=== PATIENT | female | born 1935 | race African-American/Black ===

== ENCOUNTER 2016-11-24 15:48 | Inpatient (IN) | payer MEDICARE, MEDICAID ==
[~2016-11-24] VITALS: Ht 172.7 cm; Wt 81.2 kg
[~2016-11-24 15:48] MED LIST: AMLO5TAB88 PO
[2016-11-24] MEDS ORDERED: FUROSEMIDE 40MG/4ML VIAL IV STA (17:33)
[2016-11-24] MEDS ORDERED: ASPIRIN 81MG TABLET PO STA (17:33)
[2016-11-24 18:00] LABS: BASOPHILS % 0.7 % (0.0-2.0); EOSINOPHILS % 2.8 % (0.0-5.0); HEMATOCRIT. 37.1 % (36.0-48.0); LYMPHOCYTES % 16.7 % (20.0-50.0); MEAN CORPUSCULAR HEMOGLOBIN 27.3 pg (28.0-32.0); MEAN CORPUSCULAR VOLUME 84.4 fL (81.0-99.0); MEAN PLATELET VOLUME 9.5 fl (7.4-10.4); MONOCYTES % 5.8 % (2.0-8.0); PLATELET 206 x1000/uL (130-400); RED BLOOD CELL COUNT 4.39 mill/uL (4.2-5.4); RED CELL DISTRIBUTION WIDTH 14.1 % (11.6-14.6)
[2016-11-24 18:08] LABS: PARTIAL THROMBOPLASTIN TIME 23.3 sec (23.4-31.0); PROTHROMBIN TIME 10.7 sec (9.4-11.6)
[2016-11-24 18:17] LABS: CHLORIDE 108 mEq/L (98-107)
[2016-11-24 18:26] LABS: CARBON DIOXIDE 30 mEq/L (21-32); CREATINE KINASE 90 IU/L (26-192)
[2016-11-24 18:27] LABS: TROPONIN I < 0.02 ng/mL (0.00-0.04)
[2016-11-24] MEDS ORDERED: CLONIDINE 0.1MG TABLET PO PRN (22:30)
[2016-11-24] MEDS ORDERED: DOCUSATE SODIUM 100MG CAPSULE PO PRN (22:30)
[2016-11-24] MEDS ORDERED: ACETAMINOPHEN 325MG TABLET PO PRN (22:30)
[2016-11-24] MEDS ORDERED: ONDANSETRON HCL 4MG/2ML VIAL IV PRN (22:30)
[2016-11-24] MEDS: ENOXAPARIN 40MG/0.4ML SYR SUBCUT SCH (23:20)
[2016-11-25 02:10] VITALS: BP 132/53
[2016-11-25 04:00] VITALS: BP 128/62
[2016-11-25 07:12] LABS: CARBON DIOXIDE 30 mEq/L (21-32); CHLORIDE 108 mEq/L (98-107); HDL CHOLESTEROL 54 mg/dL (40-59); LDL CHOLESTEROL 46 mg/dL (5-100)
[2016-11-25 07:15] LABS: TROPONIN I < 0.02 ng/mL (0.00-0.04)
[2016-11-25 07:45] LABS: BASOPHILS % 0.5 % (0.0-2.0); HEMATOCRIT. 35.4 % (36.0-48.0); HEMOGLOBIN. 11.5 g/dL (12.0-16.0); MEAN CORPUSCULAR HEMOGLOBIN 27.2 pg (28.0-32.0); MEAN PLATELET VOLUME 9.9 fl (7.4-10.4); MONOCYTES % 8.8 % (2.0-8.0); NEUTROPHILS % 68.7 % (40.0-76.0); PLATELET 194 x1000/uL (130-400); RED BLOOD CELL COUNT 4.22 mill/uL (4.2-5.4); RED CELL DISTRIBUTION WIDTH 13.6 % (11.6-14.6)
[2016-11-25 08:00] VITALS: BP 153/48
[2016-11-25] MEDS: FUROSEMIDE 40MG/4ML VIAL IVP SCH (09:20)
[2016-11-25] MEDS: MEMANTINE HCL 10MG TABLET PO SCH ×2 (09:20→20:43)
[2016-11-25] MEDS: POTASSIUM CHLORIDE 10MEQ TABLET SR PO SCH (09:20)
[2016-11-25] MEDS: GALANTAMINE HBR 8MG ER CAPSULE 24HR PO SCH (09:20)
[2016-11-25 09:36] LABS: CLARITY URINE CLEAR (CLEAR); COLOR URINE YELLOW (YELLOW); GLUCOSE URINE NEGATIVE (NEGATIVE); KETONES URINE NEGATIVE (NEGATIVE); LEUKOCYTE ESTERASE URINE NEGATIVE (NEGATIVE); NITRITE URINE POSITIVE (NEGATIVE); OCCULT BLOOD URINE NEGATIVE (NEGATIVE); PROTEIN URINE TRACE (NEGATIVE); SPECIFIC GRAVITY URINE 1.016 (1.005-1.030); UROBILINOGEN URINE 0.2 E.U./dL (0.2-1.0)
[2016-11-25 12:00] VITALS: BP 157/40
[2016-11-25] MEDS: LOSARTAN POTASSIUM 25 MG TABLET PO SCH (13:03)
[2016-11-25 16:00] VITALS: BP 141/46
[2016-11-25 16:48] LABS: CREATINE KINASE MB FRACTION 1.6 ng/mL (0.5-3.6); TROPONIN I < 0.02 ng/mL (0.00-0.04)
[2016-11-25 20:00] VITALS: BP 177/71
[2016-11-25] MEDS: CARVEDILOL 3.125 MG TABLET PO SCH (20:43)
[2016-11-25] MEDS: ATORVASTATIN CALCIUM 20MG TABLET PO SCH (20:43)
[2016-11-26] VITALS: BP 134/72
[2016-11-26] MEDS: ENOXAPARIN 40MG/0.4ML SYR SUBCUT SCH ×2 (00:22→23:21)
[2016-11-26 04:00] VITALS: BP 159/54
[2016-11-26 07:17] LABS: BASOPHILS % 0.5 % (0.0-2.0); EOSINOPHILS % 5.1 % (0.0-5.0); HEMOGLOBIN. 12.6 g/dL (12.0-16.0); MEAN CORPUSCULAR HEMOGLOBIN 27.4 pg (28.0-32.0); MEAN CORPUSCULAR VOLUME 84.5 fL (81.0-99.0); MONOCYTES % 7.4 % (2.0-8.0); PLATELET 210 x1000/uL (130-400); RED BLOOD CELL COUNT 4.61 mill/uL (4.2-5.4); RED CELL DISTRIBUTION WIDTH 13.7 % (11.6-14.6)
[2016-11-26 07:41] LABS: CHLORIDE 104 mEq/L (98-107)
[2016-11-26 08:00] VITALS: BP 165/39
[2016-11-26] MEDS: GALANTAMINE HBR 8MG ER CAPSULE 24HR PO SCH (08:17)
[2016-11-26] MEDS: MEMANTINE HCL 10MG TABLET PO SCH ×2 (08:17→20:57)
[2016-11-26] MEDS: LOSARTAN POTASSIUM 25 MG TABLET PO SCH ×2 (08:17→20:58)
[2016-11-26] MEDS: FUROSEMIDE 40MG/4ML VIAL IVP SCH (08:17)
[2016-11-26] MEDS: POTASSIUM CHLORIDE 10MEQ TABLET SR PO SCH (08:18)
[2016-11-26 08:37] LABS: CARBON DIOXIDE 27 mEq/L (21-32)
[2016-11-26] MEDS: CARVEDILOL 3.125 MG TABLET PO SCH ×2 (09:00→20:59)
[2016-11-26] MEDS: LEVOFLOXACIN 250MG TABLET PO SCH (10:03)
[2016-11-26 12:00] VITALS: BP 141/42
[2016-11-26] MEDS: ASPIRIN 81MG TABLET PO SCH (13:30)
[2016-11-26 16:00] VITALS: BP 143/41
[2016-11-26] MEDS ORDERED: FUROSEMIDE 40MG/4ML VIAL IVP SCH (17:00)
[2016-11-26 20:00] VITALS: BP 169/45
[2016-11-26] MEDS: ATORVASTATIN CALCIUM 20MG TABLET PO SCH (20:57)
[2016-11-27] VITALS (8 sets, daily range): BP systolic 90–180; BP diastolic 36–80
[2016-11-27] MEDS: IPRATROPIUM/ALBUTEROL 0.5-3(2.5)MG/3ML NEB HHN SCH ×2 (01:25→05:40)
[2016-11-27 06:53] LABS: BASOPHILS % 0.6 % (0.0-2.0); EOSINOPHILS % 3.5 % (0.0-5.0); HEMATOCRIT. 40.7 % (36.0-48.0); HEMOGLOBIN. 12.9 g/dL (12.0-16.0); LYMPHOCYTES % 16.9 % (20.0-50.0); MEAN CORPUSCULAR HEMOGLOBIN 27.1 pg (28.0-32.0); MEAN CORPUSCULAR VOLUME 85.3 fL (81.0-99.0); MEAN PLATELET VOLUME 9.7 fl (7.4-10.4); MONOCYTES % 5.9 % (2.0-8.0); NEUTROPHILS % 73.1 % (40.0-76.0); PLATELET 199 x1000/uL (130-400); RED BLOOD CELL COUNT 4.77 mill/uL (4.2-5.4); RED CELL DISTRIBUTION WIDTH 13.8 % (11.6-14.6)
[2016-11-27] MEDS ORDERED: DEXTROSE 50% WATER 50ML SYRINGE IV PRN (08:15)
[2016-11-27] MEDS: LOSARTAN POTASSIUM 25 MG TABLET PO SCH ×2 (09:00→20:32)
[2016-11-27] MEDS: CARVEDILOL 3.125 MG TABLET PO SCH ×2 (09:00→20:38)
[2016-11-27] MEDS ORDERED: INSULIN LISPRO 100 UNITS/ML SUBCUT NR (09:15)
[2016-11-27] MEDS: MEMANTINE HCL 10MG TABLET PO SCH ×2 (09:27→20:39)
[2016-11-27] MEDS: ASPIRIN 81MG TABLET PO SCH (09:27)
[2016-11-27] MEDS: GALANTAMINE HBR 8MG ER CAPSULE 24HR PO SCH (09:27)
[2016-11-27] MEDS: LEVOFLOXACIN 250MG TABLET PO SCH (13:04)
[2016-11-27] MEDS: INSULIN LISPRO 100 UNITS/ML SUBCUT SCH ×3 (13:09→20:43)
[2016-11-27] MEDS: BLOOD SUGAR DIAGNOSTIC STRIP TEST SCH ×3 (13:09→20:39)
[2016-11-27] MEDS: ATORVASTATIN CALCIUM 20MG TABLET PO SCH (20:29)
[2016-11-28] VITALS: BP_SYST 190; BP_SYST 198; BP_DIAS 39; BP_DIAS 61
[2016-11-28] MEDS: ENOXAPARIN 40MG/0.4ML SYR SUBCUT SCH (00:07)
[2016-11-28 00:30] VITALS: BP 99/48
[2016-11-28] MEDS: IPRATROPIUM/ALBUTEROL 0.5-3(2.5)MG/3ML NEB HHN SCH ×3 (01:06→08:16)
[2016-11-28 04:00] VITALS: BP 116/47
[2016-11-28] MEDS: BLOOD SUGAR DIAGNOSTIC STRIP TEST SCH (07:19)
[2016-11-28] MEDS: INSULIN LISPRO 100 UNITS/ML SUBCUT SCH (07:42)
[2016-11-28 08:00] VITALS: BP 111/57
[2016-11-28] MEDS: LOSARTAN POTASSIUM 25 MG TABLET PO SCH (09:00)
[2016-11-28] MEDS: CARVEDILOL 3.125 MG TABLET PO SCH (09:00)
[2016-11-28] MEDS: ASPIRIN 81MG TABLET PO SCH (09:51)
[2016-11-28] MEDS: GALANTAMINE HBR 8MG ER CAPSULE 24HR PO SCH (09:51)
[2016-11-28] MEDS: MEMANTINE HCL 10MG TABLET PO SCH (09:51)
[2016-11-28] MEDS: LEVOFLOXACIN 250MG TABLET PO SCH (10:04)
[2016-11-28 11:27] VITALS: BP_SYST 102; BP_SYST 111; BP_DIAS 52; BP_DIAS 57
[2016-11-28 12:00] VITALS: BP 102/52
== END 2016-11-28 11:54 | DRG 292 ==
LOC: ER 17:36 → 7WST 19:38 → EDBEDREQ 19:53 → ENRESERV 11-25 00:15
PROVIDERS: ADMIT Internal Medicine Geriatric Medicine; ATTEND Internal Medicine Geriatric Medicine
DX: I11.0 Hypertensive heart disease with heart failure (principal); N39.0 Urinary tract infection, site not specified; E11.51 Type 2 diabetes mellitus with diabetic peripheral angiopathy without gangrene; E86.0 Dehydration; E44.1 Mild protein-calorie malnutrition; I50.43 Acute on chronic combined systolic (congestive) and diastolic (congestive) heart failure; E11.59 Type 2 diabetes mellitus with other circulatory complications; D63.8 Anemia in other chronic diseases classified elsewhere; B96.89 Other specified bacterial agents as the cause of diseases classified elsewhere; E78.00 Pure hypercholesterolemia, unspecified; E78.5 Hyperlipidemia, unspecified; G30.9 Alzheimer's disease, unspecified; F02.80 Dementia in other diseases classified elsewhere, unspecified severity, without behavioral disturbance, psychotic disturbance, mood disturbance, and anxiety; I25.10 Atherosclerotic heart disease of native coronary artery without angina pectoris; I87.2 Venous insufficiency (chronic) (peripheral); Z79.899 Other long term (current) drug therapy; Z68.27 Body mass index [BMI] 27.0-27.9, adult
CPT/HCPCS: 36415; 71010; 80048; 80053; 80061; 81001; 82550; 82553; 82962; 83036; 83605; 83690; 83735; 83880; 84443; 84484; 85025; 85610; 85730; 87040; 87077; 87086; 87186; 93005; 93306; 93970; 94640; 94664; 96374; 97116; 97162; 99285; C1893; J1650; J1815; J1940; J7620

== ENCOUNTER 2016-12-05 21:36 | Inpatient (IN) | payer MEDICARE, MEDICAID ==
[~2016-12-05] VITALS: Ht 165.1 cm; Wt 93.9 kg
[2016-12-05] MEDS ORDERED: IPRATROPIUM BROMIDE (0.02%) 0.5MG/2.5ML NEB HHN STA (22:05)
[2016-12-05] MEDS ORDERED: ALBUTEROL (0.083%) 2.5MG/3ML NEB HHN STA (22:05)
[2016-12-05] MEDS ORDERED: METHYLPREDNISOLONE SOD SUCC 125 MG/2 ML VIAL IV STA (22:05)
[2016-12-05] MEDS ORDERED: AZITHROMYCIN 500 MG in DEXT 5% WATER 250 ML IV ONE (22:15)
[2016-12-05 22:55] LABS: BG BASE EXCESS -0.8 mmol/L (-2.0-2.0); BG CARBOXYHEMOGLOBIN 0.8 % (0.5-1.5); BG DEOXYHEMOGLOBIN 0.7 % (0.0-5.0); BG FRACTION INSPIRED OXYGEN 100; BG HCO3 ACT 30.6 mmol/L (22.0-26.0); BG METHEMOGLOBIN 0.3 % (0.0-1.5); BG OXYGEN SATURATION 99.3 % (92.0-98.5); BG OXYHEMOGLOBIN 98.2 % (94.0-97.0); BG PCO2 91.3 mmHg (35.0-45.0); BG PH 7.143 (7.350-7.450); BG SAMPLE SITE RIGHT RADIAL; BG TOTAL HEMOGLOBIN 12.9 g/dL (12.0-18.0); BG VENT MODE MASK - NRB
[2016-12-05 23:30] LABS: HEMATOCRIT. 37.2 % (36.0-48.0); HEMOGLOBIN. 11.7 g/dL (12.0-16.0); MEAN CORPUSCULAR VOLUME 85.8 fL (81.0-99.0); MEAN PLATELET VOLUME 9.6 fl (7.4-10.4); PLATELET 235 x1000/uL (130-400); RED BLOOD CELL COUNT 4.34 mill/uL (4.2-5.4); RED CELL DISTRIBUTION WIDTH 14.2 % (11.6-14.6)
[2016-12-05 23:47] LABS: CARBON DIOXIDE 31 mEq/L (21-32); CHLORIDE 101 mEq/L (98-107)
[2016-12-06] VITALS (54 sets, daily range): BP systolic 78–195; BP diastolic 22–130
[2016-12-06 00:52] LABS: BG BILEVEL POS AIRWAY PRESSURE 15/5; BG CARBOXYHEMOGLOBIN 0.6 % (0.5-1.5); BG DEOXYHEMOGLOBIN 0.9 % (0.0-5.0); BG FRACTION INSPIRED OXYGEN 50; BG METHEMOGLOBIN 0.3 % (0.0-1.5); BG OXYGEN SATURATION 99.1 % (92.0-98.5); BG OXYHEMOGLOBIN 98.2 % (94.0-97.0); BG PCO2 69.3 mmHg (35.0-45.0); BG PH 7.239 (7.350-7.450); BG PO2 189.7 mmHg (75.0-100.0); BG SAMPLE SITE RIGHT RADIAL; BG TOTAL HEMOGLOBIN 12.5 g/dL (12.0-18.0); BG VENT MODE MASK - BIPAP; BG VENT RATE 16 set
[2016-12-06] MEDS ORDERED: IPRATROPIUM/ALBUTEROL 0.5-3(2.5)MG/3ML NEB HHN PRN (03:45)
[2016-12-06] MEDS ORDERED: DEXTROSE 50% WATER 50ML SYRINGE IV PRN (03:45)
[2016-12-06] MEDS ORDERED: ACETAMINOPHEN 325MG TABLET PO PRN ×2 (03:45→11:00)
[2016-12-06] MEDS: DEXT 5%/0.45% NACL 1000ML 1,000 ML IV SCH (05:05)
[2016-12-06] MEDS: CLONIDINE 0.1MG TABLET PO PRN (05:05)
[2016-12-06] MEDS: MONTELUKAST SODIUM 10MG TABLET PO SCH ×2 (05:15→17:33)
[2016-12-06 06:16] LABS: PHOSPHORUS 3.6 mg/dL (2.5-4.9)
[2016-12-06] MEDS: BLOOD SUGAR DIAGNOSTIC STRIP TEST SCH ×4 (06:52→21:13)
[2016-12-06] MEDS: INSULIN LISPRO 100 UNITS/ML SUBCUT SCH ×4 (06:58→21:50)
[2016-12-06 07:07] LABS: PLATELET ESTIMATE NORMAL
[2016-12-06 07:36] LABS: HEMATOCRIT. 36.2 % (36.0-48.0); HEMOGLOBIN. 11.5 g/dL (12.0-16.0); MEAN CORPUSCULAR VOLUME 85.1 fL (81.0-99.0); PLATELET 206 x1000/uL (130-400); RED BLOOD CELL COUNT 4.25 mill/uL (4.2-5.4); RED CELL DISTRIBUTION WIDTH 13.8 % (11.6-14.6)
[2016-12-06 08:03] LABS: BG BASE EXCESS 0.5 mmol/L (-2.0-2.0); BG CARBOXYHEMOGLOBIN 0.4 % (0.5-1.5); BG DEOXYHEMOGLOBIN 0.8 % (0.0-5.0); BG METHEMOGLOBIN 0.2 % (0.0-1.5); BG OXYGEN SATURATION 99.2 % (92.0-98.5); BG OXYHEMOGLOBIN 98.6 % (94.0-97.0); BG PO2 202.9 mmHg (75.0-100.0); BG SAMPLE SITE RIGHT RADIAL; BG TOTAL HEMOGLOBIN 12.3 g/dL (12.0-18.0); BG VENT MODE MASK - SIMPLE
[2016-12-06] MEDS: IPRATROPIUM/ALBUTEROL 0.5-3(2.5)MG/3ML NEB HHN SCH ×4 (08:14→20:42)
[2016-12-06] MEDS: CLOPIDOGREL 75MG TABLET PO SCH (09:00)
[2016-12-06 09:25] LABS: PLATELET ESTIMATE NORMAL
[2016-12-06] MEDS ORDERED: DEXT 5%/0.45% NACL 1000ML 1,000 ML IV SCH (09:30)
[2016-12-06] MEDS: LOSARTAN POTASSIUM 25 MG TABLET PO SCH (09:50)
[2016-12-06] MEDS ORDERED: METHYLPREDNISOLONE SOD SUCC 40 MG/ML VIAL IV NR (10:00)
[2016-12-06 10:35] LABS: CHLORIDE 102 mEq/L (98-107)
[2016-12-06 10:41] LABS: CARBON DIOXIDE 25 mEq/L (21-32)
[2016-12-06] MEDS ORDERED: LIDOCAINE HCL 1% 20ML VIAL (Pyxis) INJ ONE (10:43)
[2016-12-06 10:49] LABS: BG BASE EXCESS 1.7 mmol/L (-2.0-2.0); BG BILEVEL POS AIRWAY PRESSURE ST=15/5; BG CARBOXYHEMOGLOBIN 0.5 % (0.5-1.5); BG DEOXYHEMOGLOBIN 1.3 % (0.0-5.0); BG FRACTION INSPIRED OXYGEN 50; BG HCO3 ACT 29.9 mmol/L (22.0-26.0); BG METHEMOGLOBIN 0.2 % (0.0-1.5); BG OXYGEN SATURATION 98.7 % (92.0-98.5); BG PCO2 65.6 mmHg (35.0-45.0); BG PH 7.276 (7.350-7.450); BG PO2 150.3 mmHg (75.0-100.0); BG PRESSURE SUPPORT 10; BG SAMPLE SITE RIGHT BRACHIAL; BG TOTAL HEMOGLOBIN 11.6 g/dL (12.0-18.0); BG VENT MODE MASK - BIPAP; BG VENT RATE 16 set
[2016-12-06] MEDS ORDERED: GLIMEPIRIDE 1MG TABLET PO NR (11:00)
[2016-12-06] MEDS: PANTOPRAZOLE SODIUM 40 MG/VIAL IV SCH (12:00)
[2016-12-06] MEDS: AMLODIPINE 2.5MG TABLET PO SCH ×2 (12:02→21:13)
[2016-12-06] MEDS: LEVOFLOXACIN 750MG PREMIX 150 ML IV SCH (12:07)
[2016-12-06] MEDS: BUDESONIDE 0.5MG/2ML NEB HHN SCH ×2 (12:13→22:37)
[2016-12-06] MEDS ORDERED: ERGOCALCIFEROL 50000UNITS CAPSULE PO NR (13:00)
[2016-12-06] MEDS ORDERED: CALCIUM CARBONATE 1250MG TABLET (500MG ELEMENTAL CALCIUM) PO NR (13:00)
[2016-12-06 13:08] LABS: CLARITY URINE CLEAR (CLEAR); COLOR URINE YELLOW (YELLOW); GLUCOSE URINE TRACE (NEGATIVE); KETONES URINE NEGATIVE (NEGATIVE); LEUKOCYTE ESTERASE URINE NEGATIVE (NEGATIVE); NITRITE URINE NEGATIVE (NEGATIVE); OCCULT BLOOD URINE NEGATIVE (NEGATIVE); PROTEIN URINE 1+ (NEGATIVE); SPECIFIC GRAVITY URINE 1.015 (1.005-1.030); UROBILINOGEN URINE 0.2 E.U./dL (0.2-1.0)
[2016-12-06] MEDS: METHYLPREDNISOLONE SOD SUCC 125 MG/2 ML VIAL IV SCH ×2 (13:58→21:12)
[2016-12-06 17:24] LABS: BG BASE EXCESS -0.3 mmol/L (-2.0-2.0); BG BILEVEL POS AIRWAY PRESSURE 15/5; BG CARBOXYHEMOGLOBIN 0.3 % (0.5-1.5); BG DEOXYHEMOGLOBIN 1.1 % (0.0-5.0); BG HCO3 ACT 26.7 mmol/L (22.0-26.0); BG METHEMOGLOBIN 0.3 % (0.0-1.5); BG OXYGEN SATURATION 98.9 % (92.0-98.5); BG OXYHEMOGLOBIN 98.3 % (94.0-97.0); BG PCO2 55.2 mmHg (35.0-45.0); BG PH 7.303 (7.350-7.450); BG PO2 173.9 mmHg (75.0-100.0); BG SAMPLE SITE RIGHT BRACHIAL; BG TOTAL HEMOGLOBIN 11.1 g/dL (12.0-18.0); BG VENT MODE MASK - BIPAP; BG VENT RATE 16 set
[2016-12-06] MEDS ORDERED: ATORVASTATIN CALCIUM 10MG TABLET PO SCH (21:00)
[2016-12-06] MEDS ORDERED: METHYLPREDNISOLONE SOD SUCC 40 MG/ML VIAL IV SCH (21:00)
[2016-12-06] MEDS: ATORVASTATIN CALCIUM 10MG TABLET PO SCH (21:13)
[2016-12-07] VITALS (49 sets, daily range): BP systolic 104–188; BP diastolic 46–164
[2016-12-07] MEDS: DEXT 5%/0.45% NACL 1000ML 1,000 ML IV SCH ×2 (00:22→21:32)
[2016-12-07] MEDS: IPRATROPIUM/ALBUTEROL 0.5-3(2.5)MG/3ML NEB HHN SCH ×7 (00:46→21:11)
[2016-12-07] MEDS: CLONIDINE 0.1MG TABLET PO PRN (01:57)
[2016-12-07 06:15] LABS: HEMATOCRIT. 31.7 % (36.0-48.0); HEMOGLOBIN. 10.2 g/dL (12.0-16.0); MEAN CORPUSCULAR HEMOGLOBIN 27.3 pg (28.0-32.0); MEAN CORPUSCULAR VOLUME 84.8 fL (81.0-99.0); MEAN PLATELET VOLUME 10.2 fl (7.4-10.4); PLATELET 176 x1000/uL (130-400); RED BLOOD CELL COUNT 3.73 mill/uL (4.2-5.4)
[2016-12-07 06:34] LABS: CHLORIDE 102 mEq/L (98-107)
[2016-12-07] MEDS: GLIMEPIRIDE 2MG TABLET PO SCH (06:41)
[2016-12-07] MEDS: INSULIN LISPRO 100 UNITS/ML SUBCUT SCH ×4 (06:41→21:33)
[2016-12-07] MEDS: BLOOD SUGAR DIAGNOSTIC STRIP TEST SCH ×4 (06:42→21:15)
[2016-12-07] MEDS: METHYLPREDNISOLONE SOD SUCC 125 MG/2 ML VIAL IV SCH (06:42)
[2016-12-07 06:58] LABS: CARBON DIOXIDE 25 mEq/L (21-32)
[2016-12-07 07:23] LABS: TROPONIN I 0.88 ng/mL (0.00-0.04)
[2016-12-07] MEDS: PANTOPRAZOLE SODIUM 40 MG/VIAL IV SCH (09:10)
[2016-12-07] MEDS: AMLODIPINE 2.5MG TABLET PO SCH ×2 (09:13→21:31)
[2016-12-07] MEDS: CALCIUM CARBONATE 1250MG TABLET (500MG ELEMENTAL CALCIUM) PO SCH (09:14)
[2016-12-07] MEDS: CLOPIDOGREL 75MG TABLET PO SCH (09:14)
[2016-12-07 09:21] LABS: BG BASE EXCESS 0.4 mmol/L (-2.0-2.0); BG CARBOXYHEMOGLOBIN 0.3 % (0.5-1.5); BG DEOXYHEMOGLOBIN 2.5 % (0.0-5.0); BG FRACTION INSPIRED OXYGEN 21; BG HCO3 ACT 26.3 mmol/L (22.0-26.0); BG METHEMOGLOBIN 0.3 % (0.0-1.5); BG OXYGEN SATURATION 97.5 % (92.0-98.5); BG OXYHEMOGLOBIN 96.9 % (94.0-97.0); BG PCO2 48.1 mmHg (35.0-45.0); BG PH 7.356 (7.350-7.450); BG SAMPLE SITE RIGHT BRACHIAL; BG TOTAL HEMOGLOBIN 10.8 g/dL (12.0-18.0); BG VENT MODE ROOM AIR
[2016-12-07 10:31] LABS: PLATELET ESTIMATE NORMAL
[2016-12-07] MEDS: LOSARTAN POTASSIUM 25 MG TABLET PO SCH (12:20)
[2016-12-07] MEDS: BUDESONIDE 0.5MG/2ML NEB HHN SCH (12:58)
[2016-12-07] MEDS: METHYLPREDNISOLONE SOD SUCC 40 MG/ML VIAL IV SCH ×2 (14:07→21:32)
[2016-12-07] MEDS: MONTELUKAST SODIUM 10MG TABLET PO SCH (18:18)
[2016-12-07] MEDS: ATORVASTATIN CALCIUM 10MG TABLET PO SCH (21:31)
[2016-12-07] MEDS: ZOLPIDEM TARTRATE 5MG TABLET PO PRN (21:34)
[2016-12-08] VITALS (21 sets, daily range): BP systolic 106–167; BP diastolic 45–81
[2016-12-08] MEDS: IPRATROPIUM/ALBUTEROL 0.5-3(2.5)MG/3ML NEB HHN SCH ×6 (01:06→19:54)
[2016-12-08] MEDS: CLONIDINE 0.1MG TABLET PO PRN (02:48)
[2016-12-08] MEDS: METHYLPREDNISOLONE SOD SUCC 40 MG/ML VIAL IV SCH (05:29)
[2016-12-08 05:30] LABS: HEMOGLOBIN. 10.6 g/dL (12.0-16.0); MEAN CORPUSCULAR HEMOGLOBIN 27.1 pg (28.0-32.0); MEAN CORPUSCULAR VOLUME 84.1 fL (81.0-99.0); MEAN PLATELET VOLUME 10.1 fl (7.4-10.4); PLATELET 180 x1000/uL (130-400); RED BLOOD CELL COUNT 3.93 mill/uL (4.2-5.4); RED CELL DISTRIBUTION WIDTH 14.2 % (11.6-14.6)
[2016-12-08] MEDS: GLIMEPIRIDE 2MG TABLET PO SCH (05:59)
[2016-12-08] MEDS: INSULIN LISPRO 100 UNITS/ML SUBCUT SCH ×4 (06:02→20:27)
[2016-12-08] MEDS: BLOOD SUGAR DIAGNOSTIC STRIP TEST SCH ×4 (06:11→20:14)
[2016-12-08] MEDS: LOSARTAN POTASSIUM 25 MG TABLET PO SCH (08:47)
[2016-12-08] MEDS: CLOPIDOGREL 75MG TABLET PO SCH (08:47)
[2016-12-08] MEDS: CALCIUM CARBONATE 1250MG TABLET (500MG ELEMENTAL CALCIUM) PO SCH (08:47)
[2016-12-08] MEDS: PANTOPRAZOLE SODIUM 40 MG/VIAL IV SCH (08:47)
[2016-12-08] MEDS: AMLODIPINE 2.5MG TABLET PO SCH ×2 (08:49→20:24)
[2016-12-08] MEDS: BUDESONIDE 0.5MG/2ML NEB HHN SCH ×3 (09:13→19:53)
[2016-12-08] MEDS: LEVOFLOXACIN 750MG PREMIX 150 ML IV SCH (12:30)
[2016-12-08] MEDS: DEXT 5%/0.45% NACL 1000ML 1,000 ML IV SCH (15:36)
[2016-12-08 16:48] LABS: PLATELET ESTIMATE NORMAL
[2016-12-08] MEDS: PREDNISONE 20MG TABLET PO SCH (17:10)
[2016-12-08] MEDS: MONTELUKAST SODIUM 10MG TABLET PO SCH (17:11)
[2016-12-08] MEDS: ATORVASTATIN CALCIUM 10MG TABLET PO SCH (20:24)
[2016-12-08] MEDS: ZOLPIDEM TARTRATE 5MG TABLET PO PRN (23:01)
[2016-12-09 00:17] VITALS: BP 115/43
[2016-12-09 04:30] VITALS: BP_SYST 144; BP_SYST 153; BP_DIAS 47; BP_DIAS 73
[2016-12-09] MEDS: IPRATROPIUM/ALBUTEROL 0.5-3(2.5)MG/3ML NEB HHN SCH ×3 (05:08→20:19)
[2016-12-09] MEDS: BLOOD SUGAR DIAGNOSTIC STRIP TEST SCH ×4 (06:13→20:58)
[2016-12-09] MEDS: GLIMEPIRIDE 2MG TABLET PO SCH (06:29)
[2016-12-09] MEDS: DEXT 5%/0.45% NACL 1000ML 1,000 ML IV SCH (06:29)
[2016-12-09] MEDS: INSULIN LISPRO 100 UNITS/ML SUBCUT SCH ×4 (06:33→20:55)
[2016-12-09 08:00] VITALS: BP 118/42
[2016-12-09] MEDS: MEMANTINE HCL 10MG TABLET PO SCH ×2 (08:32→20:58)
[2016-12-09] MEDS: CLOPIDOGREL 75MG TABLET PO SCH (08:33)
[2016-12-09] MEDS: CALCIUM CARBONATE 1250MG TABLET (500MG ELEMENTAL CALCIUM) PO SCH (08:33)
[2016-12-09] MEDS: PREDNISONE 20MG TABLET PO SCH (08:33)
[2016-12-09] MEDS: AMLODIPINE 2.5MG TABLET PO SCH (08:34)
[2016-12-09] MEDS: PANTOPRAZOLE SODIUM 40 MG/VIAL IV SCH (08:36)
[2016-12-09] MEDS: LOSARTAN POTASSIUM 25 MG TABLET PO SCH (09:00)
[2016-12-09] MEDS: GALANTAMINE HBR 8MG ER CAPSULE 24HR PO SCH (10:18)
[2016-12-09] MEDS: METOPROLOL TARTRATE 25MG TABLET PO SCH ×2 (10:19→20:51)
[2016-12-09 13:32] VITALS: BP 114/50
[2016-12-09 16:00] VITALS: BP 121/61
[2016-12-09] MEDS: MONTELUKAST SODIUM 10MG TABLET PO SCH (16:56)
[2016-12-09 20:20] VITALS: BP 161/81
[2016-12-09] MEDS: ATORVASTATIN CALCIUM 10MG TABLET PO SCH (20:50)
[2016-12-10] VITALS: BP 118/42
[2016-12-10] MEDS: IPRATROPIUM/ALBUTEROL 0.5-3(2.5)MG/3ML NEB HHN SCH ×4 (00:45→12:47)
[2016-12-10 04:00] VITALS: BP 101/48
[2016-12-10] MEDS: GLIMEPIRIDE 2MG TABLET PO SCH (06:19)
[2016-12-10] MEDS: BLOOD SUGAR DIAGNOSTIC STRIP TEST SCH ×2 (06:19→12:10)
[2016-12-10 06:43] LABS: BASOPHILS % 0.3 % (0.0-2.0); EOSINOPHILS % 1.2 % (0.0-5.0); HEMATOCRIT. 29.9 % (36.0-48.0); LYMPHOCYTES % 11.6 % (20.0-50.0); MEAN CORPUSCULAR HEMOGLOBIN 27.8 pg (28.0-32.0); MEAN CORPUSCULAR VOLUME 83.4 fL (81.0-99.0); MEAN PLATELET VOLUME 9.1 fl (7.4-10.4); MONOCYTES % 7.9 % (2.0-8.0); PLATELET 156 x1000/uL (130-400); RED BLOOD CELL COUNT 3.59 mill/uL (4.2-5.4); RED CELL DISTRIBUTION WIDTH 14.5 % (11.6-14.6)
[2016-12-10 08:00] VITALS: BP 136/51
[2016-12-10] MEDS: BUDESONIDE 0.5MG/2ML NEB HHN SCH (08:59)
[2016-12-10] MEDS ORDERED: AMLODIPINE 2.5MG TABLET PO SCH (09:00)
[2016-12-10] MEDS ORDERED: PREDNISONE 20MG TABLET PO SCH (09:00)
[2016-12-10] MEDS ORDERED: BUDESONIDE 0.5MG/2ML NEB ONE (09:04)
[2016-12-10] MEDS: INSULIN LISPRO 100 UNITS/ML SUBCUT SCH ×2 (10:22→12:40)
[2016-12-10] MEDS: PANTOPRAZOLE SODIUM 40 MG/VIAL IV SCH (10:28)
[2016-12-10] MEDS: CLOPIDOGREL 75MG TABLET PO SCH (10:28)
[2016-12-10] MEDS: GALANTAMINE HBR 8MG ER CAPSULE 24HR PO SCH (10:28)
[2016-12-10] MEDS: LEVOFLOXACIN 750MG PREMIX 150 ML IV SCH (10:30)
[2016-12-10] MEDS: LOSARTAN POTASSIUM 25 MG TABLET PO SCH (10:30)
[2016-12-10] MEDS: MEMANTINE HCL 10MG TABLET PO SCH (10:30)
[2016-12-10] MEDS: CALCIUM CARBONATE 1250MG TABLET (500MG ELEMENTAL CALCIUM) PO SCH (10:30)
[2016-12-10] MEDS: METOPROLOL TARTRATE 25MG TABLET PO SCH (10:30)
[2016-12-10 12:00] VITALS: BP 130/50
[2016-12-10 13:53] VITALS: BP 130/50
== END 2016-12-10 15:00 | DRG 291 ==
LOC: ER 22:55 → MICUNO 12-06 03:41 → 8WST 12-08 10:25
PROVIDERS: ADMIT Internal Medicine Geriatric Medicine; ATTEND Internal Medicine Geriatric Medicine
PROC: 5A09357 Assistance with Respiratory Ventilation, Less than 24 Consecutive Hours, Continuous Positive Airway Pressure (ICD-10-PCS; principal; 2016-12-06)
PROC: 02HV33Z Insertion of Infusion Device into Superior Vena Cava, Percutaneous Approach (ICD-10-PCS; 2016-12-06)
PROC: B548ZZA Ultrasonography of Superior Vena Cava, Guidance (ICD-10-PCS; 2016-12-06)
DX: I13.0 Hypertensive heart and chronic kidney disease with heart failure and stage 1 through stage 4 chronic kidney disease, or unspecified chronic kidney disease (principal); I50.33 Acute on chronic diastolic (congestive) heart failure; N17.9 Acute kidney failure, unspecified; J96.01 Acute respiratory failure with hypoxia; J96.02 Acute respiratory failure with hypercapnia; E86.0 Dehydration; E46 Unspecified protein-calorie malnutrition; J44.1 Chronic obstructive pulmonary disease with (acute) exacerbation; I47.1 Supraventricular tachycardia; E11.65 Type 2 diabetes mellitus with hyperglycemia; E11.22 Type 2 diabetes mellitus with diabetic chronic kidney disease; E78.5 Hyperlipidemia, unspecified; E87.5 Hyperkalemia; F02.80 Dementia in other diseases classified elsewhere, unspecified severity, without behavioral disturbance, psychotic disturbance, mood disturbance, and anxiety; G30.9 Alzheimer's disease, unspecified; I15.0 Renovascular hypertension; I25.10 Atherosclerotic heart disease of native coronary artery without angina pectoris; I35.0 Nonrheumatic aortic (valve) stenosis; I44.7 Left bundle-branch block, unspecified; E11.51 Type 2 diabetes mellitus with diabetic peripheral angiopathy without gangrene; I87.2 Venous insufficiency (chronic) (peripheral); N18.3 Chronic kidney disease, stage 3 (moderate); Z86.73 Personal history of transient ischemic attack (TIA), and cerebral infarction without residual deficits; Z87.440 Personal history of urinary (tract) infections; I25.2 Old myocardial infarction; Z87.891 Personal history of nicotine dependence; Z91.5 Personal history of self-harm; Z95.5 Presence of coronary angioplasty implant and graft; Z79.899 Other long term (current) drug therapy; Z68.34 Body mass index [BMI] 34.0-34.9, adult
CPT/HCPCS: 36415; 36569; 36600; 71010; 76770; 76937; 78580; 80048; 80053; 80185; 81001; 82375; 82805; 82962; 83036; 83735; 83880; 84100; 84443; 84484; 85007; 85025; 85027; 87040; 87086; 87804; 93005; 93970; 94640; 94660; 96365; 96375; 97110; 97116; 97163; 99285; C1725; C9113; J0456; J1815; J1956; J2920; J2930; J3490; J7060; J7512; J7611; J7620; J7626; A4315

== ENCOUNTER 2018-03-24 18:50 | Inpatient (IN) | payer MEDICARE, MEDICAID ==
[~2018-03-24] VITALS: Ht 170.2 cm; Wt 76.7 kg
[2018-03-24 20:24] LABS: HEMATOCRIT. 40.7 % (36.0-48.0); HEMOGLOBIN. 13.1 g/dL (12.0-16.0); MEAN CORPUSCULAR HEMOGLOBIN 28.1 pg (28.0-32.0); MEAN CORPUSCULAR VOLUME 87.5 fL (81.0-99.0); MEAN PLATELET VOLUME 9.1 fl (7.4-10.4); PLATELET 173 x1000/uL (130-400); RED BLOOD CELL COUNT 4.66 mill/uL (4.2-5.4); RED CELL DISTRIBUTION WIDTH 15.4 % (11.6-14.6)
[2018-03-24 20:29] LABS: CHLORIDE 101 mEq/L (98-107); PROTHROMBIN TIME 10.1 sec (9.1-11.1)
[2018-03-24 20:47] LABS: PLATELET ESTIMATE NORMAL
[2018-03-24] MEDS ORDERED: SODIUM CHLORIDE 0.9% 1,000 ML IV ONE (20:56)
[2018-03-25 00:05] LABS: CLARITY URINE CLEAR (CLEAR); COLOR URINE YELLOW (YELLOW); KETONES URINE NEGATIVE (NEGATIVE); LEUKOCYTE ESTERASE URINE 1+ (NEGATIVE); NITRITE URINE NEGATIVE (NEGATIVE); OCCULT BLOOD URINE NEGATIVE (NEGATIVE); PROTEIN URINE NEGATIVE (NEGATIVE); SPECIFIC GRAVITY URINE 1.011 (1.005-1.030); UROBILINOGEN URINE 0.2 E.U./dL (0.2-1.0)
[2018-03-25 01:29] VITALS: BP 130/40
[2018-03-25 04:00] VITALS: BP 139/51
[2018-03-25] MEDS ORDERED: DEXTROSE 50% WATER 50ML SYRINGE IV PRN (04:00)
[2018-03-25] MEDS ORDERED: IPRATROPIUM/ALBUTEROL 0.5-3(2.5)MG/3ML NEB HHN PRN (04:15)
[2018-03-25] MEDS ORDERED: AMLO2.5T45 PO (04:39)
[2018-03-25] MEDS ORDERED: ATOR20TA65 PO (04:40)
[2018-03-25] MEDS ORDERED: CLOP75TA33 PO (04:41)
[2018-03-25] MEDS ORDERED: BISA10SU8 RC (04:41)
[2018-03-25] MEDS ORDERED: FURO40TA5 PO (04:42)
[2018-03-25] MEDS ORDERED: GALA8CAP5 PO (04:43)
[2018-03-25] MEDS ORDERED: GLIM4TAB2 PO (04:45)
[2018-03-25] MEDS ORDERED: IPRA3AMP31 IH (04:46)
[2018-03-25] MEDS ORDERED: LOSA25TA12 PO (04:47)
[2018-03-25] MEDS ORDERED: ACET650S22 PO (04:48)
[2018-03-25] MEDS ORDERED: METO5TAB69 PO (04:49)
[2018-03-25] MEDS ORDERED: MEMA10TA19 PO (04:49)
[2018-03-25] MEDS ORDERED: METO37.5 PO (04:51)
[2018-03-25] MEDS ORDERED: MONT10TA24 PO (04:52)
[2018-03-25] MEDS ORDERED: PANT40TA4 PO (04:53)
[2018-03-25] MEDS ORDERED: POTA10CA42 PO (04:54)
[2018-03-25] MEDS ORDERED: PRED10TA PO (04:56)
[2018-03-25] MEDS: BLOOD SUGAR DIAGNOSTIC STRIP TEST SCH ×4 (07:40→20:29)
[2018-03-25 08:00] VITALS: BP 112/38
[2018-03-25] MEDS: ENOXAPARIN 30MG/0.3ML SYR SUBCUT SCH (08:55)
[2018-03-25] MEDS: SODIUM CHLORIDE 0.45% 1,000 ML IV SCH ×2 (08:55→15:00)
[2018-03-25] MEDS: GALANTAMINE HBR 8MG ER CAPSULE 24HR PO SCH (08:56)
[2018-03-25] MEDS: OMEPRAZOLE 20MG CAPSULE EXTENDED RELEASE PO SCH (08:56)
[2018-03-25] MEDS: MEMANTINE HCL 10MG TABLET PO SCH ×2 (08:56→20:29)
[2018-03-25] MEDS: INSULIN LISPRO 100 UNITS/ML SUBCUT SCH ×4 (08:56→21:00)
[2018-03-25 10:21] LABS: BASOPHILS % 0.2 % (0.0-2.0); EOSINOPHILS % 2.4 % (0.0-5.0); HEMATOCRIT. 39.3 % (36.0-48.0); HEMOGLOBIN. 12.7 g/dL (12.0-16.0); LYMPHOCYTES % 9.3 % (20.0-50.0); MEAN CORPUSCULAR HEMOGLOBIN 27.9 pg (28.0-32.0); MEAN CORPUSCULAR VOLUME 86.5 fL (81.0-99.0); MEAN PLATELET VOLUME 8.8 fl (7.4-10.4); MONOCYTES % 6.6 % (2.0-8.0); NEUTROPHILS % 81.5 % (40.0-76.0); PLATELET 180 x1000/uL (130-400); RED BLOOD CELL COUNT 4.55 mill/uL (4.2-5.4); RED CELL DISTRIBUTION WIDTH 15.1 % (11.6-14.6)
[2018-03-25] MEDS ORDERED: CEFEPIME 1,000 MG in DEXTROSE 5% WATER 50 ML IV SCH (10:30)
[2018-03-25 10:37] LABS: CHLORIDE 105 mEq/L (98-107)
[2018-03-25 10:45] LABS: PHOSPHORUS 3.2 mg/dL (2.5-4.9)
[2018-03-25 12:00] VITALS: BP 134/51
[2018-03-25 16:00] VITALS: BP 130/50
[2018-03-25 16:07] LABS: CREATINE KINASE 41 IU/L (26-192)
[2018-03-25 20:00] VITALS: BP 119/53
[2018-03-26] VITALS: BP 126/57
[2018-03-26] MEDS: SODIUM CHLORIDE 0.45% 1,000 ML IV SCH ×2 (00:35→10:54)
[2018-03-26 04:00] VITALS: BP 159/63
[2018-03-26] MEDS: BLOOD SUGAR DIAGNOSTIC STRIP TEST SCH ×4 (05:40→21:57)
[2018-03-26] MEDS: INSULIN LISPRO 100 UNITS/ML SUBCUT SCH ×4 (07:20→21:00)
[2018-03-26 07:44] LABS: BASOPHILS % 0.3 % (0.0-2.0); EOSINOPHILS % 3.1 % (0.0-5.0); HEMATOCRIT. 36.6 % (36.0-48.0); HEMOGLOBIN. 11.9 g/dL (12.0-16.0); LYMPHOCYTES % 8.5 % (20.0-50.0); MEAN CORPUSCULAR VOLUME 86.1 fL (81.0-99.0); MEAN PLATELET VOLUME 9.2 fl (7.4-10.4); MONOCYTES % 8.3 % (2.0-8.0); NEUTROPHILS % 79.8 % (40.0-76.0); PLATELET 180 x1000/uL (130-400); RED BLOOD CELL COUNT 4.25 mill/uL (4.2-5.4); RED CELL DISTRIBUTION WIDTH 15.3 % (11.6-14.6)
[2018-03-26 08:00] VITALS: BP 111/63
[2018-03-26] MEDS: ENOXAPARIN 30MG/0.3ML SYR SUBCUT SCH (08:10)
[2018-03-26] MEDS: GALANTAMINE HBR 8MG ER CAPSULE 24HR PO SCH (08:10)
[2018-03-26] MEDS: MEMANTINE HCL 10MG TABLET PO SCH ×2 (08:10→20:38)
[2018-03-26] MEDS: OMEPRAZOLE 20MG CAPSULE EXTENDED RELEASE PO SCH (08:10)
[2018-03-26] MEDS: CEFEPIME 1,000 MG in DEXTROSE 5% WATER 50 ML IV SCH (08:10)
[2018-03-26 09:22] LABS: CHLORIDE 105 mEq/L (98-107)
[2018-03-26 12:00] VITALS: BP 159/60
[2018-03-26 16:00] VITALS: BP 136/61
[2018-03-26 20:00] VITALS: BP 109/60
[2018-03-26] MEDS: METOPROLOL TARTRATE 25MG TABLET PO SCH (20:38)
[2018-03-26] MEDS: MIRTAZAPINE 15MG TABLET PO SCH (20:38)
[2018-03-27] VITALS: BP 140/52
[2018-03-27] MEDS: SODIUM CHLORIDE 0.45% 1,000 ML IV SCH ×2 (00:47→09:38)
[2018-03-27 05:15] VITALS: BP 109/66
[2018-03-27] MEDS: BLOOD SUGAR DIAGNOSTIC STRIP TEST SCH ×4 (05:56→21:11)
[2018-03-27 07:32] LABS: BASOPHILS % 0.6 % (0.0-2.0); EOSINOPHILS % 3.1 % (0.0-5.0); HEMOGLOBIN. 11.6 g/dL (12.0-16.0); LYMPHOCYTES % 10.9 % (20.0-50.0); MEAN CORPUSCULAR HEMOGLOBIN 27.7 pg (28.0-32.0); NEUTROPHILS % 76.4 % (40.0-76.0); PLATELET 185 x1000/uL (130-400); RED BLOOD CELL COUNT 4.19 mill/uL (4.2-5.4)
[2018-03-27 07:47] LABS: CHLORIDE 105 mEq/L (98-107)
[2018-03-27 08:00] VITALS: BP 168/62
[2018-03-27] MEDS: INSULIN LISPRO 100 UNITS/ML SUBCUT SCH ×4 (08:02→21:00)
[2018-03-27] MEDS: ENOXAPARIN 40MG/0.4ML SYR SUBCUT SCH (09:38)
[2018-03-27] MEDS: CEFEPIME 1,000 MG in DEXTROSE 5% WATER 50 ML IV SCH (09:38)
[2018-03-27] MEDS: MEMANTINE HCL 10MG TABLET PO SCH ×2 (09:39→21:11)
[2018-03-27] MEDS: FAMOTIDINE 20MG TABLET PO SCH (09:39)
[2018-03-27] MEDS: GALANTAMINE HBR 8MG ER CAPSULE 24HR PO SCH (09:39)
[2018-03-27] MEDS: METOPROLOL TARTRATE 25MG TABLET PO SCH ×2 (09:45→21:11)
[2018-03-27 12:00] VITALS: BP 124/46
[2018-03-27] MEDS: AMLODIPINE 5MG TABLET PO SCH ×2 (13:22→21:10)
[2018-03-27 16:00] VITALS: BP 144/45
[2018-03-27 20:00] VITALS: BP 121/60
[2018-03-27] MEDS: MIRTAZAPINE 15MG TABLET PO SCH (21:10)
[2018-03-28] VITALS: BP 126/62
[2018-03-28 04:00] VITALS: BP 132/36
[2018-03-28] MEDS: SODIUM CHLORIDE 0.45% 1,000 ML IV SCH ×3 (04:27→23:47)
[2018-03-28] MEDS: BLOOD SUGAR DIAGNOSTIC STRIP TEST SCH ×4 (06:09→21:24)
[2018-03-28] MEDS: INSULIN LISPRO 100 UNITS/ML SUBCUT SCH ×5 (07:50→21:39)
[2018-03-28 08:06] VITALS: BP 140/51
[2018-03-28] MEDS: AMLODIPINE 5MG TABLET PO SCH ×2 (08:40→21:24)
[2018-03-28] MEDS: GALANTAMINE HBR 8MG ER CAPSULE 24HR PO SCH (08:40)
[2018-03-28] MEDS: MEMANTINE HCL 10MG TABLET PO SCH ×2 (08:40→21:24)
[2018-03-28] MEDS: FAMOTIDINE 20MG TABLET PO SCH (08:40)
[2018-03-28] MEDS: ENOXAPARIN 40MG/0.4ML SYR SUBCUT SCH (08:41)
[2018-03-28] MEDS: CEFEPIME 1,000 MG in DEXTROSE 5% WATER 50 ML IV SCH (08:42)
[2018-03-28] MEDS ORDERED: HYDRALAZINE HCL 25MG TABLET PO NR (09:40)
[2018-03-28 12:10] VITALS: BP 118/42
[2018-03-28] MEDS: HYDRALAZINE HCL 25MG TABLET PO SCH ×2 (13:19→21:24)
[2018-03-28 20:00] VITALS: BP 118/45
[2018-03-28] MEDS: MIRTAZAPINE 15MG TABLET PO SCH (21:24)
[2018-03-29] VITALS: BP 102/52
[2018-03-29 04:00] VITALS: BP 127/50
[2018-03-29] MEDS: HYDRALAZINE HCL 25MG TABLET PO SCH ×3 (05:56→22:00)
[2018-03-29] MEDS: BLOOD SUGAR DIAGNOSTIC STRIP TEST SCH ×4 (05:56→20:29)
[2018-03-29 06:10] LABS: COMPLEMENT C3 141 mg/dL (82-167)
[2018-03-29 07:09] LABS: BASOPHILS % 1.1 % (0.0-2.0); EOSINOPHILS % 1.9 % (0.0-5.0); HEMATOCRIT. 37.5 % (36.0-48.0); HEMOGLOBIN. 12.3 g/dL (12.0-16.0); LYMPHOCYTES % 11.8 % (20.0-50.0); MEAN CORPUSCULAR HEMOGLOBIN 28.2 pg (28.0-32.0); MEAN CORPUSCULAR VOLUME 85.7 fL (81.0-99.0); MEAN PLATELET VOLUME 8.9 fl (7.4-10.4); MONOCYTES % 7.6 % (2.0-8.0); NEUTROPHILS % 77.6 % (40.0-76.0); PLATELET 208 x1000/uL (130-400); RED BLOOD CELL COUNT 4.37 mill/uL (4.2-5.4); RED CELL DISTRIBUTION WIDTH 15.1 % (11.6-14.6)
[2018-03-29 07:15] LABS: ANTI-NUCLEAR ANTIBODIES DIRECT Negative (Negative)
[2018-03-29 08:00] VITALS: BP 116/53
[2018-03-29] MEDS: GALANTAMINE HBR 8MG ER CAPSULE 24HR PO SCH (08:00)
[2018-03-29] MEDS: FAMOTIDINE 20MG TABLET PO SCH (08:00)
[2018-03-29] MEDS: MEMANTINE HCL 10MG TABLET PO SCH ×2 (08:00→20:29)
[2018-03-29] MEDS: ENOXAPARIN 40MG/0.4ML SYR SUBCUT SCH (08:01)
[2018-03-29] MEDS: AMLODIPINE 5MG TABLET PO SCH ×2 (08:01→20:28)
[2018-03-29] MEDS: INSULIN LISPRO 100 UNITS/ML SUBCUT SCH ×4 (08:03→21:00)
[2018-03-29] MEDS: CEFEPIME 1,000 MG in DEXTROSE 5% WATER 50 ML IV SCH (08:08)
[2018-03-29] MEDS: SODIUM CHLORIDE 0.45% 1,000 ML IV SCH ×2 (08:08→17:41)
[2018-03-29 08:26] LABS: CANCER ANTIGEN 125 73.1 U/mL (0.0-38.1)
[2018-03-29 12:00] VITALS: BP 125/50
[2018-03-29 16:00] VITALS: BP 136/58
[2018-03-29 20:00] VITALS: BP 104/56
[2018-03-29] MEDS: MIRTAZAPINE 15MG TABLET PO SCH (20:29)
[2018-03-30 00:26] VITALS: BP 93/57
[2018-03-30 04:00] VITALS: BP 147/52
[2018-03-30 06:21] LABS: BASOPHILS % 0.6 % (0.0-2.0); EOSINOPHILS % 2.5 % (0.0-5.0); HEMATOCRIT. 36.5 % (36.0-48.0); LYMPHOCYTES % 13.3 % (20.0-50.0); MEAN CORPUSCULAR HEMOGLOBIN 28.4 pg (28.0-32.0); MEAN CORPUSCULAR VOLUME 86.6 fL (81.0-99.0); MONOCYTES % 8.4 % (2.0-8.0); NEUTROPHILS % 75.2 % (40.0-76.0); RED BLOOD CELL COUNT 4.22 mill/uL (4.2-5.4); RED CELL DISTRIBUTION WIDTH 15.1 % (11.6-14.6)
[2018-03-30] MEDS: HYDRALAZINE HCL 25MG TABLET PO SCH ×3 (06:25→21:28)
[2018-03-30 06:42] LABS: CHLORIDE 104 mEq/L (98-107)
[2018-03-30] MEDS: BLOOD SUGAR DIAGNOSTIC STRIP TEST SCH ×4 (06:52→21:29)
[2018-03-30 08:00] VITALS: BP 155/44
[2018-03-30] MEDS: INSULIN LISPRO 100 UNITS/ML SUBCUT SCH ×4 (08:10→21:00)
[2018-03-30 09:24] LABS: PLATELET 217 x1000/uL (130-400)
[2018-03-30] MEDS: FAMOTIDINE 20MG TABLET PO SCH (09:39)
[2018-03-30] MEDS: GALANTAMINE HBR 8MG ER CAPSULE 24HR PO SCH (09:39)
[2018-03-30] MEDS: MEMANTINE HCL 10MG TABLET PO SCH ×2 (09:39→21:29)
[2018-03-30] MEDS: ENOXAPARIN 40MG/0.4ML SYR SUBCUT SCH (09:40)
[2018-03-30] MEDS: AMLODIPINE 5MG TABLET PO SCH ×2 (09:40→21:29)
[2018-03-30] MEDS: CEFEPIME 1,000 MG in DEXTROSE 5% WATER 50 ML IV SCH (09:40)
[2018-03-30 12:00] VITALS: BP 116/64
[2018-03-30] MEDS: SODIUM CHLORIDE 0.45% 1,000 ML IV SCH ×2 (15:00→21:32)
[2018-03-30 16:00] VITALS: BP 144/84
[2018-03-30 20:00] VITALS: BP 146/85
[2018-03-30] MEDS: MIRTAZAPINE 15MG TABLET PO SCH (21:28)
[2018-03-31] VITALS: BP 126/63
[2018-03-31] MEDS: ACETAMINOPHEN 325MG TABLET PO PRN ×2 (03:58→16:27)
[2018-03-31 04:00] VITALS: BP 145/55
[2018-03-31] MEDS: HYDRALAZINE HCL 25MG TABLET PO SCH ×2 (06:08→14:06)
[2018-03-31] MEDS: BLOOD SUGAR DIAGNOSTIC STRIP TEST SCH ×2 (06:09→12:40)
[2018-03-31 07:31] LABS: BASOPHILS % 0.9 % (0.0-2.0); EOSINOPHILS % 3.2 % (0.0-5.0); HEMATOCRIT. 32.8 % (36.0-48.0); HEMOGLOBIN. 10.7 g/dL (12.0-16.0); LYMPHOCYTES % 11.5 % (20.0-50.0); MEAN CORPUSCULAR HEMOGLOBIN 27.8 pg (28.0-32.0); MEAN CORPUSCULAR VOLUME 85.3 fL (81.0-99.0); MEAN PLATELET VOLUME 9.3 fl (7.4-10.4); MONOCYTES % 10.7 % (2.0-8.0); NEUTROPHILS % 73.7 % (40.0-76.0); PLATELET 236 x1000/uL (130-400); RED BLOOD CELL COUNT 3.84 mill/uL (4.2-5.4); RED CELL DISTRIBUTION WIDTH 15.3 % (11.6-14.6)
[2018-03-31 08:00] VITALS: BP 130/49
[2018-03-31 08:07] LABS: CHLORIDE 103 mEq/L (98-107)
[2018-03-31] MEDS: INSULIN LISPRO 100 UNITS/ML SUBCUT SCH ×2 (08:10→14:02)
[2018-03-31] MEDS: AMLODIPINE 5MG TABLET PO SCH (10:17)
[2018-03-31] MEDS: GALANTAMINE HBR 8MG ER CAPSULE 24HR PO SCH (10:18)
[2018-03-31] MEDS: MEMANTINE HCL 10MG TABLET PO SCH (10:18)
[2018-03-31] MEDS: FAMOTIDINE 20MG TABLET PO SCH (10:18)
[2018-03-31] MEDS: ENOXAPARIN 40MG/0.4ML SYR SUBCUT SCH (10:19)
[2018-03-31] MEDS: SODIUM CHLORIDE 0.45% 1,000 ML IV SCH (11:00)
[2018-03-31 12:00] VITALS: BP 136/60
[2018-03-31 16:00] VITALS: BP 131/36
[2018-03-31 18:46] VITALS: BP 131/36
== END 2018-03-31 19:17 | DRG 682 ==
LOC: ER 18:50 → 7WST 21:05 → EDBEDREQ 21:07 → EDBEDREQTM 21:07 → ENRESERV 03-25 00:15 → 7WST 03-25 07:09
PROVIDERS: ADMIT Internal Medicine Geriatric Medicine; ATTEND Internal Medicine Geriatric Medicine
DX: N17.9 Acute kidney failure, unspecified (principal); E43 Unspecified severe protein-calorie malnutrition; C78.01 Secondary malignant neoplasm of right lung; C78.02 Secondary malignant neoplasm of left lung; N39.0 Urinary tract infection, site not specified; I13.0 Hypertensive heart and chronic kidney disease with heart failure and stage 1 through stage 4 chronic kidney disease, or unspecified chronic kidney disease; I50.42 Chronic combined systolic (congestive) and diastolic (congestive) heart failure; E87.5 Hyperkalemia; Z95.5 Presence of coronary angioplasty implant and graft; J44.9 Chronic obstructive pulmonary disease, unspecified; D63.8 Anemia in other chronic diseases classified elsewhere; E11.22 Type 2 diabetes mellitus with diabetic chronic kidney disease; E11.42 Type 2 diabetes mellitus with diabetic polyneuropathy; E11.51 Type 2 diabetes mellitus with diabetic peripheral angiopathy without gangrene; E78.00 Pure hypercholesterolemia, unspecified; E86.0 Dehydration; F02.80 Dementia in other diseases classified elsewhere, unspecified severity, without behavioral disturbance, psychotic disturbance, mood disturbance, and anxiety; G30.9 Alzheimer's disease, unspecified; I44.7 Left bundle-branch block, unspecified; M19.90 Unspecified osteoarthritis, unspecified site; I15.0 Renovascular hypertension; I25.10 Atherosclerotic heart disease of native coronary artery without angina pectoris; I87.2 Venous insufficiency (chronic) (peripheral); R91.8 Other nonspecific abnormal finding of lung field; K57.90 Diverticulosis of intestine, part unspecified, without perforation or abscess without bleeding; F32.9 Major depressive disorder, single episode, unspecified; E78.5 Hyperlipidemia, unspecified; N18.9 Chronic kidney disease, unspecified; I35.0 Nonrheumatic aortic (valve) stenosis; Z66 Do not resuscitate; R16.0 Hepatomegaly, not elsewhere classified; Z74.01 Bed confinement status; Z79.84 Long term (current) use of oral hypoglycemic drugs; Z79.899 Other long term (current) drug therapy; Z86.73 Personal history of transient ischemic attack (TIA), and cerebral infarction without residual deficits; Z87.440 Personal history of urinary (tract) infections; Z91.5 Personal history of self-harm; Z95.820 Peripheral vascular angioplasty status with implants and grafts; Z68.26 Body mass index [BMI] 26.0-26.9, adult
CPT/HCPCS: 36415; 71045; 71250; 74176; 76770; 76856; 80048; 82105; 82378; 82550; 82962; 83036; 84100; 84443; 84484; 86038; 86160; 86301; 86304; 93005; 93306; 93970; 96360; 96361; 99285; A6261; C1893; J0692; J1650; J1815; J7030; J7060; A4315